=== PATIENT | female | born 1985 | race Caucasian/White ===

== ENCOUNTER 2018-07-03 16:17 | Outpatient (CLI) | payer OTHER ==
[2018-07-03] MEDS ORDERED: DICLEGIS DR 101 EACH PO (18:27)
[2018-07-03] MEDS ORDERED: PRENATABS RX T1 EACH PO (18:28)
== END 2018-07-04 17:19 | disposition home or self-care (01) ==
LOC: OBS/DEL 16:17
DX: O21.8 Other vomiting complicating pregnancy (principal); Z34.03 Encounter for supervision of normal first pregnancy, third trimester

== ENCOUNTER 2018-07-16 00:18 | Outpatient (CLI) | payer OTHER ==
[~2018-07-16 00:18] MED LIST: DICLEGIS DR 101 EACH PO; PRENATABS RX T1 EACH PO
== END 2018-07-16 11:06 | disposition home or self-care (01) ==
LOC: OBS/DEL 00:18
DX: O60.03 Preterm labor without delivery, third trimester (principal); Z34.83 Encounter for supervision of other normal pregnancy, third trimester

== ENCOUNTER 2018-09-20 05:47 | Inpatient (IN) | payer OTHER ==
[~2018-09-20] VITALS: Ht 160 cm; Wt 83.0 kg
== END 2018-09-22 16:20 | disposition home or self-care (01) | DRG 807 ==
LOC: OBS/DEL 05:47 → LDR 08:31 → OB/GYN 08:31
PROVIDERS: ADMIT Obstetrics & Gynecology
PROC: 10E0XZZ Delivery of Products of Conception, External Approach (ICD-10-PCS; principal; 2018-09-20)
PROC: 0HQ9XZZ Repair Perineum Skin, External Approach (ICD-10-PCS; 2018-09-20)
PROC: 3E033VJ Introduction of Other Hormone into Peripheral Vein, Percutaneous Approach (ICD-10-PCS; 2018-09-20)
PROC: 10907ZC Drainage of Amniotic Fluid, Therapeutic from Products of Conception, Via Natural or Artificial Opening (ICD-10-PCS; 2018-09-20)
PROC: 4A1HXCZ Monitoring of Products of Conception, Cardiac Rate, External Approach (ICD-10-PCS; 2018-09-20)
DX: O70.0 First degree perineal laceration during delivery (principal); Z37.0 Single live birth; Z3A.39 39 weeks gestation of pregnancy